=== PATIENT | male | born 1975 | race Caucasian/White ===

== ENCOUNTER 2020-07-16 02:59 | Emergency (ER) | payer BC ==
[2020-07-16 03:10] VITALS: BP 165/112; PULSE 70
[2020-07-16] MEDS ORDERED: Heparin Sodium 5,000 Units/ML Vial IVPUSH STA (03:13)
[2020-07-16] MEDS ORDERED: Heparin Sodium/D5W 25,000 UNITS/500 ML BAG IV SCH (03:15)
[2020-07-16] MEDS ORDERED: Ondansetron 4 MG/2 ML SDV IVPUSH ONE (03:23)
[2020-07-16] MEDS ORDERED: HYDROmorphone 1 MG/ML Syringe IVPUSH ONE (03:23)
[2020-07-16] MEDS ORDERED: Clopidogrel 75 MG Tab PO ONE (03:38)
[2020-07-16] MEDS ORDERED: Tenecteplase 50 MG Kit IV STA (03:39)
--- NOTE | 2020-07-16 03:47 | EDM.PDOC ---
ED HPI GENERAL MEDICAL PROBLEM - General Chief Complaint: Chest Pain Stated Complaint: [facility] Time Seen by Provider: 07/16/20 03:13 Source of Information: Reports: Patient History Limitations: Reports: No Limitations - History of Present Illness INITIAL COMMENTS - FREE TEXT/NARRATIVE: Mr. Laughlin a pleasant 45-year-old gentleman with a past medical history significant for hypertension, who is now brought to the ED by EMS for chest pain. He states that he developed retrosternal burning/pressure pain (not a discomfort) around 17:00 yesterday evening, 07/15/2020. The pain has been constant, although it has been progressively getting worse. It does not radiate, although he states that both of his hands feel weak. He has not identified any modifiers, but states that he does feel somewhat better if he is more upright. He had some dyspnea earlier, although not at present. He has felt diaphoretic. No sense of impending doom. He was able to go to bed, but was woken with the pain. He took some Tums and apple cider vinegar without any improvement, therefore called EMS. No prior similar symptoms. EMS gave the patient 4 baby aspirin and 1 spray of nitroglycerin, which did not improve his symptoms. Here in the ED, the patient's initial BP is found to be elevated at 165/112, otherwise, he is afebrile, saturating 97% on room air. Prior to yesterday evening, the patient denies having a recent fever, chills, sore throat, ear pain, nasal or sinus congestion, cough, dyspnea, chest pain, palpitations, nausea, vomiting, constipation, diarrhea, abdominal pain, urinary symptoms, recent weight gain or weight loss, recent bloody bowel movements or black bowel movements, recent joint aches, headaches, or rashes. The patient's PCP is CHERELLE Martínez. He has not received an influenza vaccine this season, and declined an offer to receive one here in the ED. Chest Pain Score (Numeric/FACES): 6 - Related Data Allergies Allergy/AdvReac Type Severity Reaction Status Date / Time No Known Allergies Allergy Verified 07/16/20 03:10 Home Meds: Home Meds Albuterol Sulfate [Albuterol Sulfate HFA] 18 gm IH Q3H PRN #1 [id number] 03/04/14 [Rx] Bisoprolol/Hydrochlorothiazide [Bisoprolol/HCTZ 10-6.25 MG] 0 mg PO DAILY 03/04/14 [History] Codeine/Promethazine [Phenergan with Codeine] 15 ml PO Q6HR #200 ml 03/04/14 [Rx] levoFLOXacin [Levaquin] 500 mg PO DAILY #8 tab 03/04/14 [Rx] predniSONE [Prednisone] 20 mg PO BID #10 tablet 03/04/14 [Rx] Azithromycin [Z-Barrett] 250 mg PO ASDIRECTED #1 dosepk 03/24/16 [Rx] Past Medical History Cardiovascular History: Reports: Hypertension Endocrine/Metabolic History: Reports: Obesity/BMI 30+ - Past Surgical History HEENT Surgical History: Reports: Adenoidectomy, Tonsillectomy Social & Family History - Tobacco Use Tobacco Use Status *Q: Never Tobacco User Tobacco Use Within Last Twelve Months: Smokeless Tobacco (Chews 1/3 can per day) - Alcohol Use Alcohol Use History: Yes Alcohol Use Frequency: Rarely - Recreational Drug Use Recreational Drug Use: Yes Drug Use in Last 12 Months: No Recreational Drug Type: Reports: Marijuana/Hashish (last smoked around 1999) - Living Situation & Occupation Living situation: Reports: , with Spouse Occupation: Employed (residential driver) ED ROS GENERAL - Review of Systems Review Of Systems: Comprehensive ROS is negative, except as noted in HPI. ED EXAM, GENERAL - Physical Exam Exam: See Below Exam Limited By: No Limitations General Appearance: Alert, WD/WN, Anxious Eye Exam: Bilateral Eye: EOMI, Normal Inspection Ears: Normal External Exam, Hearing Grossly Normal Nose: Normal Inspection Throat/Mouth: Normal Inspection, Normal Lips, Normal Voice, No Airway Compromise Head: Atraumatic, Normocephalic Neck: Normal Inspection, Full Range of Motion Respiratory/Chest: No Respiratory Distress, Lungs Clear, Normal Breath Sounds, No Accessory Muscle Use, Chest Non-Tender Cardiovascular: Normal Peripheral Pulses, Regular Rate, Rhythm, No Gallop, No JVD, No Murmur, No Rub Peripheral Pulses: 3+: Radial (L), Radial (R) GI/Abdominal: Normal Bowel Sounds, Soft, Non-Tender, No Organomegaly, No Distention, No Abnormal Bruit, No Mass Back Exam: Normal Inspection, Full Range of Motion, NT Extremities: Normal Inspection, Normal Range of Motion, Normal Capillary Refill Neurological: Alert, Oriented, Normal Cognition, No Motor/Sensory Deficits Psychiatric: Anxious Skin Exam: Warm, Intact, Normal Color, No Rash, Diaphoretic ( mild) #1 Interpretation EKG Date: 07/16/20 Time: 03:07 Rhythm: NSR Rate (Beats/Min): 60 [place]: Normal P-Wave: Present QRS: Normal ST-T: Elevated (Inferior wall STEMI) QT: Normal Comparison: NA - No Prior EKG Course - Vital Signs Last Recorded V/S: Last Vital Signs Temp 36.0 C L 07/16/20 03:07 Pulse 70 07/16/20 03:07 Resp 16 07/16/20 03:07 BP 165/112 H 07/16/20 03:07 Pulse Ox 97 07/16/20 03:07 - Orders/Labs/Meds Orders: Active Orders 24 hr Category Date Time Status Chest 1V Frontal [CR] Stat Exams 07/16/20 03:16 Taken Labs: Laboratory Tests 07/16/20 07/16/20 07/16/20 Range/Units 03:15 03:15 03:15 WBC 7.65 (4.23-9.07) K/mm3 RBC 5.36 (4.63-6.08) M/mm3 Hgb 15.9 (13.7-17.5) gm/dl Hct 46.3 (40.1-51.0) % MCV 86.4 (79.0-92.2) fl MCH 29.7 (25.7-32.2) pg MCHC 34.3 (32.2-35.5) g/dl RDW Std Deviation 43.2 (35.1-43.9) fL Plt Count 231 (163-337) K/mm3 MPV 9.7 (9.4-12.3) fl Neutrophils % (Manual) 70 H (40-60) % Band Neutrophils % 0 (0-10) % Lymphocytes % (Manual) 30 (20-40) % Atypical Lymphs % 0 % Monocytes % (Manual) 0 L (2-10) % Eosinophils % (Manual) 0 L (0.8-7.0) % Basophils % (Manual) 0 L (0.2-1.2) Platelet Estimate Adequate RBC Morph Comment Normal PT 10.2 (9.7-12.0) SECONDS INR 0.95 APTT 22.6 (21.7-31.4) SECONDS D-Dimer, Quantitative < 0.19 L (0.19-0.50) mg/L Sodium 136 (136-145) mEq/L Potassium 4.0 (3.5-5.1) mEq/L Chloride 100 (98-107) mEq/L Carbon Dioxide 24 (21-32) mEq/L Anion Gap 16.0 H (5-15) BUN 19 H (7-18) mg/dL Creatinine 1.3 (0.7-1.3) mg/dL Est Cr Clr Drug Dosing 77.93 mL/min Estimated GFR (MDRD) 59 (>60) mL/min BUN/Creatinine Ratio 14.6 (14-18) Glucose 175 H (74-106) mg/dL Calcium 9.3 (8.5-10.1) mg/dL Magnesium 1.8 (1.8-2.4) mg/dl Total Bilirubin 0.4 (0.2-1.0) mg/dL AST 22 (15-37) U/L ALT 48 (16-63) U/L Alkaline Phosphatase 68 (46-116) U/L Troponin I 0.353 H* (0.00-0.056) ng/mL NT-Pro-B Natriuret Pep (0-125) pg/mL Total Protein 7.5 (6.4-8.2) g/dl Albumin 3.7 (3.4-5.0) g/dl Globulin 3.8 gm/dL Albumin/Globulin Ratio 1.0 (1-2) SARS-CoV-2 RNA (DORINDA) (NEGATIVE) 07/16/20 07/16/20 Range/Units 03:15 03:30 WBC (4.23-9.07) K/mm3 RBC (4.63-6.08) M/mm3 Hgb (13.7-17.5) gm/dl Hct (40.1-51.0) % MCV (79.0-92.2) fl MCH (25.7-32.2) pg MCHC (32.2-35.5) g/dl RDW Std Deviation (35.1-43.9) fL Plt Count (163-337) K/mm3 MPV (9.4-12.3) fl Neutrophils % (Manual) (40-60) % Band Neutrophils % (0-10) % Lymphocytes % (Manual) (20-40) % Atypical Lymphs % % Monocytes % (Manual) (2-10) % Eosinophils % (Manual) (0.8-7.0) % Basophils % (Manual) (0.2-1.2) Platelet Estimate RBC Morph Comment PT (9.7-12.0) SECONDS INR APTT (21.7-31.4) SECONDS D-Dimer, Quantitative (0.19-0.50) mg/L Sodium (136-145) mEq/L Potassium (3.5-5.1) mEq/L Chloride (98-107) mEq/L Carbon Dioxide (21-32) mEq/L Anion Gap (5-15) BUN (7-18) mg/dL Creatinine (0.7-1.3) mg/dL Est Cr Clr Drug Dosing mL/min Estimated GFR (MDRD) (>60) mL/min BUN/Creatinine Ratio (14-18) Glucose (74-106) mg/dL Calcium (8.5-10.1) mg/dL Magnesium (1.8-2.4) mg/dl Total Bilirubin (0.2-1.0) mg/dL AST (15-37) U/L ALT (16-63) U/L Alkaline Phosphatase (46-116) U/L Troponin I (0.00-0.056) ng/mL NT-Pro-B Natriuret Pep 36 (0-125) pg/mL Total Protein (6.4-8.2) g/dl Albumin (3.4-5.0) g/dl Globulin gm/dL Albumin/Globulin Ratio (1-2) SARS-CoV-2 RNA (DORINDA) Negative (NEGATIVE) Meds: Medications Discontinued Medications Generic Name Dose Route Start Last Admin Trade Name Freq PRN Reason Stop Dose Admin Clopidogrel Bisulfate 300 mg 07/16/20 03:38 07/16/20 03:46 Plavix PO 07/16/20 03:39 300 mg ONETIME ONE Administration Heparin Sodium (Porcine) 4,000 units 07/16/20 03:13 07/16/20 03:23 Heparin Sodium IVPUSH 07/16/20 03:14 4,000 units .BOLUS STA Administration Hydromorphone HCl 1 mg 07/16/20 03:23 07/16/20 03:30 Dilaudid IVPUSH 07/16/20 03:24 1 mg ONETIME ONE Administration Heparin Sodium/Dextrose 25,000 units in 500 mls @ 20 mls/hr 07/16/20 03:15 07/16/20 03:23 Heparin 25,000 Units In D5w 500 Ml IV 1,000 units/hr TITRATE DWAYNE 20 mls/hr Administration Protocol 1,000 UNITS/HR Ondansetron HCl 4 mg 07/16/20 03:23 07/16/20 03:31 Zofran IVPUSH 07/16/20 03:24 4 mg ONETIME ONE Administration Tenecteplase 50 mg 07/16/20 03:39 07/16/20 03:46 Tnkase IV 07/16/20 03:40 50 mg ONETIME STA Administration Protocol - Re-Assessments/Exams Free Text/Narrative Re-Assessment/Exam: 07/16/20 03:40 The patient's ECG indicates an inferior wall STEMI. He was given 4 baby aspirin + 1 spray of nitroglycerin per EMS en route. I ordered a 4000 unit heparin bolus, to be followed by a 1000 unit/h heparin drip. I also ordered 1 mg of IV Dilaudid and 4 mg of IV Zofran. Case discussed with Claudio at [facility] at 03:28. Case then discussed with Dr. Henson, Hot Baller on-call at [facility], at 03:35. He recommended that we give the patient Plavix 300 mg and IV TNKase. He recommended that we not give the heparin drip. He accepted the patient for transfer to their facility. The patient will go by ground ambulance, which is the fastest method at this time. 07/16/20 03:58 Portable chest radiograph appears to be grossly normal. The cardiac silhouette is within normal limits. No pulmonary vascular congestion. No pleural effusions seen on this AP view. No focal infiltrate. No pneumothorax. Formal read per the Radiologist pending. Notified that the portable chest x-ray image has already been pushed to [facility]. The patient's CBC is unremarkable. The remainder of his labs have not yet resulted. EMS is here at this time, preparing to transfer the patient. 07/16/20 04:53 The patient's CMP is remarkable for an anion gap slightly elevated at 16.0, but with a bicarbonate normal at 24. His BUN is slightly elevated at 19 with a Cr normal at 1.3, and he has hyperglycemia of 175, with the remainder of his CMP being unremarkable. His magnesium level is within normal limits at 1.8. His troponin is elevated at 0.353. His D-dimer is undetectably low. His coags are within normal limits. His pro-BNP is within normal limits at 36. His swab for the SARS-CoV-2 virus has not yet resulted. 07/16/20 05:13 The patient's swab for the SARS-CoV-2 virus has returned negative. Departure - Departure Time of Disposition: 04:00 Disposition: DC/Tfer to Acute Hospital 02 Reason for Transfer *Q: Primary PCI Indicated Condition: Serious Clinical Impression: ST elevation myocardial infarction (STEMI) of inferior wall Referrals: Pearl Fritz PA-C [Ordering Only Provider] - Forms: ED Department Discharge Sepsis Event Note (ED) - Evaluation Sepsis Screening Result: No Definite Risk - Focused Exam Vital Signs: Vital Signs Temp Pulse Resp BP Pulse Ox 07/16/20 03:07 36.0 C L 70 16 165/112 H 97 - My Orders Last 24 Hours: My Active Orders 07/16/20 03:16 Chest 1V Frontal [CR] Stat - Assessment/Plan Last 24 Hours: My Active Orders 07/16/20 03:16 Chest 1V Frontal [CR] Stat
--- NOTE | 2020-07-16 08:55 | CR ---
Chest: Portable view of the chest was obtained. Comparison: Prior chest x-ray of 03/04/14. Heart size and mediastinum are normal. Lungs are clear with no acute parenchymal change. Bony structures show nothing acute. Old healed fracture deformity is noted within the left clavicle. Impression: 1. Nothing acute is seen on portable chest x-ray. Diagnostic code #2
== END 2020-07-16 04:00 ==
LOC: JD.ED 02:59
DX: I21.19 ST elevation (STEMI) myocardial infarction involving other coronary artery of inferior wall (principal); R79.89 Other specified abnormal findings of blood chemistry; I10 Essential (primary) hypertension; F17.220 Nicotine dependence, chewing tobacco, uncomplicated; E66.9 Obesity, unspecified; Z68.36 Body mass index [BMI] 36.0-36.9, adult; Z79.899 Other long term (current) drug therapy; Z20.828 Contact with and (suspected) exposure to other viral communicable diseases
CPT/HCPCS: 36415; 71045; 80053; 83735; 83880; 84484; 85007; 85027; 85379; 85610; 85730; 87635; 93005; 96365; 96375; 99285; A9270; J1170; J1644; J2405; J3101; U0002

== ENCOUNTER 2021-08-16 02:41 | Emergency (ER) | payer BC ==
[2021-08-16 03:29] VITALS: BP 147/86; PULSE 68
[2021-08-16] MEDS ORDERED: Ondansetron 4 MG/2 ML SDV IVPUSH ONE ×2 (03:45→04:43)
[2021-08-16] MEDS ORDERED: Lactated Ringers 1,000 ML IV ONE (03:45)
[2021-08-16] MEDS ORDERED: Famotidine 20 MG/2 ML SDV IVPUSH ONE (03:46)
[2021-08-16] MEDS ORDERED: Alum Hydrox/Mag Hydrox/Simeth 30 ML, Lidocaine 2% 15 ML PO ONE ×2 (03:46)
[2021-08-16] MEDS ORDERED: Sucralfate 1 GM Tab PO ONE (06:03)
== END 2021-08-16 06:30 | disposition home or self-care (01) ==
LOC: JD.ED 02:41
DX: K52.9 Noninfective gastroenteritis and colitis, unspecified (principal); I25.2 Old myocardial infarction; I10 Essential (primary) hypertension; E66.9 Obesity, unspecified; Z68.39 Body mass index [BMI] 39.0-39.9, adult; Z86.16 Personal history of COVID-19; Z79.82 Long term (current) use of aspirin; Z79.02 Long term (current) use of antithrombotics/antiplatelets; Z79.899 Other long term (current) drug therapy
CPT/HCPCS: 36415; 80053; 83690; 85025; 96374; 96375; 96376; 99284; A9270; J2405; J3490; J7120

== ENCOUNTER 2024-05-28 18:47 | Emergency (ER) | payer BC, OTHER ==
[2024-05-28] MEDS ORDERED: Sodium Chloride 0.9% 10 ML Syringe FLUSH PRN (19:30)
[2024-05-28 20:01] LABS: BASOPHILS PERCENT AUTO 0.7 % (0.0-1.0); EOSINOPHILS ABSOLUTE AUTO 0.1 K/mm3 (0.0-0.4); EOSINOPHILS PERCENT AUTO 1.1 % (0.0-6.0); HEMATOCRIT 44.2 % (42.0-52.0); HEMOGLOBIN 15.6 gm/dl (14.0-18.0); IMMATURE GRAN ABSOLUTE AUTO 0.01 K/mm3 (0.00-0.05); IMMATURE GRAN PERCENT AUTO 0.2 % (0.0-0.4); LYMPHOCYTES ABSOLUTE AUTO 1.9 K/mm3 (1.0-4.8); LYMPHOCYTES PERCENT AUTO 34.8 % (24.0-44.0); MEAN CORPUSCULAR HEMOGLOBIN 30.2 pg (28.0-32.0); MEAN CORPUSCULAR HGB CONC 35.3 g/dl (32.0-36.0); MEAN CORPUSCULAR VOLUME 85.7 fl (83.0-99.0); MEAN PLATELET VOLUME 9.5 fl (9.4-12.4); MONOCYTES ABSOLUTE AUTO 0.5 K/mm3 (0.0-0.8); MONOCYTES PERCENT AUTO 9.2 % (0.0-8.0); NEUTROPHILS ABSOLUTE AUTO 2.9 K/mm3 (1.8-7.7); PLATELET COUNT,PLT 201 K/mm3 (150-400); RED BLOOD CELL COUNT 5.16 M/mm3 (4.52-5.90); WHITE BLOOD CELL COUNT,WBC 5.35 K/mm3 (3.9-11.3)
[2024-05-28] MEDS: Aluminum Hydroxide/Magnesium Hydroxide/Simethicone Susp 30 ML Cup PO ONE (20:08)
[2024-05-28] MEDS: Hyoscyamine 0.125 MG Tab.SL SL ONE (20:08)
[2024-05-28] MEDS: Dicyclomine 10 MG Cap PO ONE (20:08)
[2024-05-28 20:21] LABS: D-DIMER QUANTITATIVE 0.27 mg/L (0.19-0.50); INR 0.93; PROTHROMBIN TIME 9.9 SECONDS (9.7-12.0)
[2024-05-28 20:22] LABS: PTT,PARTIAL THROMBOPLSTIN TIME 21.9 SECONDS (21.7-31.4)
[2024-05-28 20:25] LABS: ALBUMIN 3.5 g/dl (3.4-5.0); ALKALINE PHOSPHATASE 207 U/L (46-116); ANION GAP 13.8 (5-15); BILIRUBIN TOTAL 0.7 mg/dL (0.2-1.0); BLOOD UREA NITROGEN,BUN 18 mg/dL (7-18); C-REACTIVE PROTEIN 0.52 mg/dL (<0.30); CALCIUM 8.9 mg/dL (8.5-10.1); CARBON DIOXIDE,CO2 27 mEq/L (21-32); CHLORIDE,CL 95 mEq/L (98-107); CREATININE 1.2 mg/dL (0.7-1.3); EST CRCL DRUG DOSING (CG) 81.73 mL/min; ESTIMATED GFR 74 mL/min (>60); MAGNESIUM 1.7 mg/dL (1.8-2.4); SODIUM,NA 132 mEq/L (136-145); TROPONIN I HIGH SENSITIVITY 8 pg/mL (<=76)
[2024-05-28 20:29] LABS: GLUCOSE RANDOM 394 mg/dL (70-99); POTASSIUM,K 3.8 mEq/L (3.5-5.1)
[2024-05-28 21:04] LABS: HEMOGLOBIN A1C > 14.0 %
[2024-05-28] MEDS ORDERED: Famotidine 20 MG/2 ML SDV IVPUSH ONE (22:07)
[2024-05-28] MEDS: metFORMIN 500 MG Tab PO ONE (22:20)
[2024-05-28 22:36] VITALS: BP 132/56; PULSE 68
== END 2024-05-28 22:35 | disposition home or self-care (01) ==
LOC: JD.ED 18:47
DX: K21.00 Gastro-esophageal reflux disease with esophagitis, without bleeding (principal); E11.9 Type 2 diabetes mellitus without complications; I10 Essential (primary) hypertension; I25.2 Old myocardial infarction; Z95.5 Presence of coronary angioplasty implant and graft; E66.9 Obesity, unspecified; Z68.41 Body mass index [BMI] 40.0-44.9, adult; Z86.16 Personal history of COVID-19; Z79.82 Long term (current) use of aspirin; Z79.84 Long term (current) use of oral hypoglycemic drugs; Z79.899 Other long term (current) drug therapy
CPT/HCPCS: 36415; 71045; 80053; 83036; 83735; 83880; 84484; 85025; 85379; 85610; 85730; 86140; 93005; 99285; A9270; 93010; 99284